=== PATIENT | male | born 2000 | race Caucasian/White ===

== ENCOUNTER 2023-12-28 07:15 | Emergency (ER) | payer OTHER | END 2023-12-28 08:10 | disposition home or self-care (01) | LOC: FB.ED 07:15 | DX: T59.4X1A Toxic effect of chlorine gas, accidental (unintentional), initial encounter (principal); F17.210 Nicotine dependence, cigarettes, uncomplicated | CPT/HCPCS: 99283 ==

== ENCOUNTER 2024-01-18 18:20 | Emergency (ER) | payer SELFPAY | END 2024-01-18 19:10 | disposition home or self-care (01) | LOC: FB.ED 18:20 | DX: T75.4XXA Electrocution, initial encounter (principal); F17.210 Nicotine dependence, cigarettes, uncomplicated; W86.0XXA Exposure to domestic wiring and appliances, initial encounter | CPT/HCPCS: 99282 ==

== ENCOUNTER 2024-05-26 04:52 | Emergency (ER) | payer MEDICAID ==
[2024-05-26 05:32] LABS: BLOOD UREA NITROGEN,BUN 10 mg/dL (7-18); BUN/CREATININE RATIO 11.1 (9-20); CALCIUM 8.8 mg/dL (8.6-10.2); CARBON DIOXIDE,CO2 24 mmol/L (21-32); CHLORIDE,CL 102 mmol/L (100-110); CREATININE 0.9 mg/dL (0.70-1.30); EST CRCL DRUG DOSING (CG) 121.39 mL/min; ESTIMATED GFR 125 mL/min (>60); GLUCOSE RANDOM 92 mg/dL (80-116); POTASSIUM,K 4.1 mmol/L (3.5-5.3); SODIUM,NA 136 mmol/L (135-145)
[2024-05-26 05:35] LABS: BASOPHILS PERCENT AUTO 0.6 % (0.3-3.8); EOSINOPHILS ABSOLUTE AUTO 0.2 x10-3/uL (0.0-0.6); EOSINOPHILS PERCENT AUTO 3.4 % (0.1-6.8); HEMATOCRIT 41.2 % (38.3-50.1); HEMOGLOBIN 14.4 g/dL (12.9-17.7); LYMPHOCYTES ABSOLUTE AUTO 2.1 x10-3/uL (0.5-4.5); MEAN CORPUSCULAR HEMOGLOBIN 31.1 pg (27.0-33.3); MEAN PLATELET VOLUME 8.3 fL (6.7-11.0); MONOCYTES ABSOLUTE AUTO 0.5 x10-3/uL (0.0-1.2); NEUTROPHILS ABSOLUTE AUTO 4.1 x10-3/uL (1.7-6.9); PLATELET COUNT,PLT 286 x10(3)uL (117-477); RED BLOOD CELL COUNT 4.63 x10(6)uL (3.90-5.90); RED CELL DISTRIBUTION WIDTH 12.3 % (12.4-15.0)
[2024-05-26 05:38] LABS: A/G RATIO 1.1; ALANINE AMINOTRANSFERASE,ALT 101 U/L (12-36); ALKALINE PHOSPHATASE 65 IU/L (56-112); ASPARTATE AMNIOTRANSFERASE,AST 46 IU/L (5-25); BILIRUBIN TOTAL 0.5 mg/dL (0.1-1.3); PROTEIN TOTAL,TP 7.6 g/dL (6.0-8.0)
== END 2024-05-26 06:43 | disposition home or self-care (01) ==
LOC: FB.ED 04:52
DX: M79.662 Pain in left lower leg (principal); M25.572 Pain in left ankle and joints of left foot; R07.89 Other chest pain; F17.210 Nicotine dependence, cigarettes, uncomplicated
CPT/HCPCS: 36415; 80053; 85025; 85379; 99283

== ENCOUNTER 2024-09-22 23:47 | Emergency (ER) | payer MEDICAID ==
[2024-09-23] MEDS: Amoxicillin/Clavulanate K 875-125 MG Tab PO ONE (00:21)
[2024-09-23] MEDS: Lidocaine 2% Viscous Solution 15 ML UD PO ONE (00:23)
[2024-09-23] MEDS: Ibuprofen 800 MG Tab PO ONE (00:30)
[2024-09-23] MEDS: Acetaminophen 500 MG Tab PO ONE (00:31)
== END 2024-09-23 00:47 | disposition home or self-care (01) ==
LOC: FB.ED 23:47
DX: K04.7 Periapical abscess without sinus (principal); F17.210 Nicotine dependence, cigarettes, uncomplicated; Z79.899 Other long term (current) drug therapy
CPT/HCPCS: 99282; 99283; A9270

== ENCOUNTER 2025-01-15 01:16 | Emergency (ER) | payer MEDICAID ==
[2025-01-15] MEDS ORDERED: Sodium Chloride 0.9% 10 ML Syringe FLUSH PRN (01:29)
[2025-01-15 02:08] LABS: BLOOD UREA NITROGEN,BUN 14 mg/dL (7-18); CARBON DIOXIDE,CO2 29 mmol/L (21-32); CHLORIDE,CL 103 mmol/L (100-110); CREATININE 0.7 mg/dL (0.70-1.30); ESTIMATED GFR 134 mL/min (>60); GLUCOSE RANDOM 95 mg/dL (80-116); POTASSIUM,K 3.5 mmol/L (3.5-5.3); SODIUM,NA 139 mmol/L (135-145)
[2025-01-15 02:15] LABS: BASOPHILS ABSOLUTE AUTO 0.0 x10-3/uL (0.0-0.3); BASOPHILS PERCENT AUTO 0.4 % (0.3-3.8); EOSINOPHILS ABSOLUTE AUTO 0.3 x10-3/uL (0.0-0.6); EOSINOPHILS PERCENT AUTO 3.6 % (0.1-6.8); LYMPHOCYTES ABSOLUTE AUTO 3.6 x10-3/uL (0.5-4.5); LYMPHOCYTES PERCENT AUTO 47.0 % (15.8-45.3); MEAN PLATELET VOLUME 8.5 fL (6.7-11.0); MONOCYTES ABSOLUTE AUTO 0.6 x10-3/uL (0.0-1.2); MONOCYTES PERCENT AUTO 7.6 % (5.5-15.2); NEUTROPHILS ABSOLUTE AUTO 3.2 x10-3/uL (1.7-6.9); NEUTROPHILS PERCENT AUTO 41.4 % (40.3-71.8); PLATELET COUNT,PLT 301 x10(3)uL (117-477); RED BLOOD CELL COUNT 4.48 x10(6)uL (3.90-5.90); RED CELL DISTRIBUTION WIDTH 13.1 % (12.4-15.0); WHITE BLOOD CELL COUNT,WBC 7.7 x10-3/uL (3.2-10.1)
[2025-01-15 02:22] LABS: A/G RATIO 1.2; ALANINE AMINOTRANSFERASE,ALT 31 U/L (12-36); ASPARTATE AMNIOTRANSFERASE,AST 23 IU/L (5-25); BILIRUBIN TOTAL 0.3 mg/dL (0.1-1.3); PROTEIN TOTAL,TP 6.8 g/dL (6.0-8.0)
== END 2025-01-15 03:20 | disposition home or self-care (01) ==
LOC: FB.ED 01:16
DX: R07.89 Other chest pain (principal); F17.200 Nicotine dependence, unspecified, uncomplicated; Z79.899 Other long term (current) drug therapy; Z86.16 Personal history of COVID-19
CPT/HCPCS: 36415; 71045; 80053; 83735; 84484; 85025; 85379; 99285